=== PATIENT | female | born 1985 | race Caucasian/White ===

== ENCOUNTER 2016-09-15 13:05 | Day surgery (SDC) | payer OTHER ==
[2016-09-15] VITALS (9 sets, daily range): BP systolic 84–109; BP diastolic 53–67; PULSE 55–88; RESP 13–18; Ht 162.6 cm; Wt 68.5 kg
[~2016-09-15] VITALS: Ht 162.6 cm; Wt 68.5 kg
[~2016-09-15 13:05] MED LIST: BUPIVACAINE 0.25% (MPF) 30 ML INJ ONE
[2016-09-15] MEDS ORDERED: SOD CHLORIDE 0.9% 1,000 ML IV SCH (14:00)
[2016-09-15] MEDS ORDERED: CEFAZOLIN 2 GM/50 ML (PMX) 50 ML IVPB SCH (14:00)
[2016-09-15] MEDS ORDERED: MIDAZOLAM 1 MG/ML 2 ML INJ ONE (15:13)
[2016-09-15] MEDS ORDERED: FENTAnyl 50 MCG/ML VIAL ONE (15:13)
[2016-09-15] MEDS ORDERED: METOCLOPRAMIDE 10 MG INJ ONE (15:13)
[2016-09-15] MEDS ORDERED: PROPOFOL 20 ML ONE (15:13)
[2016-09-15] MEDS ORDERED: LIDOCAINE 2% (MDV) 20 ML INJ ONE (15:21)
[2016-09-15] MEDS ORDERED: METOCLOPRAMIDE 10 MG INJ IV PRN (15:30)
[2016-09-15] MEDS ORDERED: OXYCODONE/ACETAMINOPHEN (5/325) TAB PO PRN ×2 (15:30)
[2016-09-15] MEDS ORDERED: DIPHENHYDRAMINE 50 MG INJ IV PRN (15:30)
[2016-09-15] MEDS ORDERED: MEPERIDINE 25 MG INJ IV PRN (15:30)
[2016-09-15] MEDS ORDERED: HYDROmorphONE (0.2 MG/ML) 10ML SYG IV PRN ×3 (15:30)
[2016-09-15] MEDS ORDERED: ONDANSETRON 4 MG INJ IV PRN (15:30)
[2016-09-15] MEDS ORDERED: CEFAZOLIN 1 GM INJ ONE (15:32)
[2016-09-15] MEDS ORDERED: KETOROLAC 30 MG INJ ONE (15:34)
--- NOTE | 2016-09-15 15:45 | OPR ---
Date/Time of Note Date/Time of Note DATE: 09/15/16 TIME: 15:44 Operative Report Procedure Date: Sep 15, 2016 Preoperative Diagnosis left dorsal ganglion cyst Postoperative Diagnosis same Operation Performed excision fo dorsal ganglion cyst 2 cm incision and 2 cm cyst localized adjacent tissue transfer with the use of skin flaps 2 sq cm defect Surgeon: Maurilio SMITH Specimens left dorsal ganglion cyst Maurilio SMITH Sep 15, 2016 15:45
[2016-09-15] MEDS ORDERED: ACETAMINOPHEN/CODEINE #3 TAB PO ONE (16:00)
--- NOTE | 2016-09-15 16:11 | OPR ---
DATE OF OPERATION: 09/15/2016 INDICATION: This is a 31-year-old female with a large left dorsal ganglion cyst. She requests surgical excision. Risks, alternatives, benefits, and personnel were discussed with the patient. Patient expressed understanding and consents to the operation. PREOPERATIVE DIAGNOSIS: Left dorsal ganglion cyst. POSTOPERATIVE DIAGNOSIS: Left dorsal ganglion cyst. OPERATION PERFORMED: 1. Excision of left dorsal ganglion cyst with 2 cm incision and 2 cm size cyst. 2. Localized adjacent tissue transfer with the use of skin flaps with 2 square cm defect. 3. Therapeutic injection of subcutaneous local anesthesia CPT 30656 SURGEON: Celestine Moran MD SPECIMEN: Left dorsal ganglion cyst. COMPLICATIONS: None. ANESTHESIA: MAC. DESCRIPTION OF PROCEDURE: The patient was taken to the OR and prepped and draped in the usual sterile fashion. Surgical timeout was performed. IV antibiotics were given. Local anesthesia was infiltrated in the left dorsal ganglion cyst. A 15 blade was used for incision over the cyst transversely. Dissection cautery was carried down to the cyst and the cyst was bluntly dissected out. The cyst contents were opened and extruded. The cyst was then excised all the way down to the base. There was good hemostasis. Due to the large tissue defect, localized adjacent tissue transfer with the use of skin flaps were performed, multilayer closure with interrupted 3-0 vicryl and running 4-0 Monocryl. Dermabond is applied. Dictated By: CELESTINE ORR/SAUL Conf#: [id number] DID#: [id number]
== END 2016-09-15 17:23 | disposition home or self-care (01) ==
LOC: SDS 13:05
PROVIDERS: ATTEND Surgery
DX: M67.432 Ganglion, left wrist (principal)
CPT/HCPCS: 25111; 84703; 88304; J0690; J1885; J2250; J2765; J3010; Z7512; Z7610